=== PATIENT | male | born 2005 | race Hispanic/Latino ===

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

== ENCOUNTER 2025-02-24 18:11 | Emergency (ER) | payer OTHER ==
[~2025-02-24] VITALS: Ht 180.3 cm; Wt 78.9 kg
[2025-02-24] MEDS ORDERED: OMEP-173 (18:25)
[2025-02-24 22:34] LABS: BASO # 0.1 10^3/uL (0.0-0.2); BASO % 0.5 % (0.0-1.0); EOS # 0.3 10^3/uL (0.0-0.5); EOS % 2.7 % (0.0-3.0); HEMATOCRIT 39.4 % (42.0-52.0); HEMOGLOBIN 13.5 g/dl (13.5-17.5); LYMPH # 3.1 10^3/uL (1.5-5.0); LYMPH % 32.7 % (24.0-44.0); MEAN CORPUSCULAR HEMOGLOBIN 29.2 pg (27.0-33.0); MEAN CORPUSCULAR HGB CONC 34.3 g/dl (32.0-36.5); MEAN CORPUSCULAR VOLUME 85.1 fl (80.0-96.0); MONO # 1.1 10^3/uL (0.0-0.8); MONO % 11.5 % (2.0-8.0); NEUTROPHILS # 4.9 10^3/uL (1.5-8.5); NEUTROPHILS % 52.4 % (36.0-66.0); PLATELET COUNT, AUTOMATED 362 10^3/uL (150-450); RED BLOOD COUNT 4.63 10^6/uL (4.30-6.10); WHITE BLOOD COUNT 9.4 10^3/uL (4.0-10.0)
[2025-02-24] MEDS: SUCRALFATE SUSP 1GM/10ML UD PO ONE (22:37)
[2025-02-24] MEDS: NS (Normal Saline) 0.9% 1,000 ML IV ONE (22:37)
[2025-02-24 22:47] LABS: LIPASE 28 U/L (12-53)
[2025-02-24 22:49] LABS: ALBUMIN 3.9 G/DL (3.2-5.2); ALKALINE PHOSPHATASE 74 U/L (40-129); ALT/SGPT 25 U/L (7.0-40); AST/SGOT 19 U/L (<34); BILIRUBIN,DIRECT 0.2 MG/DL (<0.4); BILIRUBIN,TOTAL 0.4 MG/DL (0.3-1.2); BLOOD UREA NITROGEN 14 MG/DL (9-23); CALCIUM LEVEL 9.2 MG/DL (8.5-10.1); CARBON DIOXIDE LEVEL 30 MMOL/L (20-31); CHLORIDE LEVEL 105 MMOL/L (98-107); CREATININE FOR GFR 1.04 MG/DL (0.70-1.30); GLOMERULAR FILTRATION RATE > 90.0 (>60); GLUCOSE, FASTING 77 MG/DL (60-100); POTASSIUM SERUM 3.7 MMOL/L (3.5-5.1); SODIUM LEVEL 144 MMOL/L (136-145); TOTAL PROTEIN 7.4 G/DL (5.7-8.2)
[2025-02-24] MEDS: ONDANSETRON 4MG 2ML VIAL IV ONE (23:37)
[2025-02-24] MEDS ORDERED: ISOVUE-370 76% 100ML VIAL As Ordered ONE (23:47)
[2025-02-25] MEDS ORDERED: SUCR1SS PO (01:29)
[2025-02-25 01:39] VITALS: BP 118/62; TEMP 98; O2SAT 100
== END 2025-02-25 01:42 | disposition home or self-care (01) ==
LOC: M ED 18:11
DX: R13.10 Dysphagia, unspecified (principal); Z79.899 Other long term (current) drug therapy
CPT/HCPCS: 36415; 71260; 80048; 80076; 83690; 85025; 99284; Q9967